=== PATIENT | female | born 1950 | race Caucasian/White ===

== ENCOUNTER 2017-03-18 15:30 | Emergency (ER) | payer MEDICARE, OTHER ==
[2017-03-18] MEDS ORDERED: HYDROcodone/APAP 5/325 TABLET ONE (16:22)
[2017-03-18] MEDS ORDERED: IBUPROFEN 200 MG TABLET ONE (16:22)
[2017-03-18] MEDS ORDERED: ONDANSETRON ODT 4 MG ONE (16:22)
== END 2017-03-18 17:34 ==
LOC: ED 15:30
DX: S20.212A Contusion of left front wall of thorax, initial encounter (principal); W01.0XXA Fall on same level from slipping, tripping and stumbling without subsequent striking against object, initial encounter; Y93.89 Activity, other specified; Y99.8 Other external cause status; Y92.009 Unspecified place in unspecified non-institutional (private) residence as the place of occurrence of the external cause
CPT/HCPCS: 99284

== ENCOUNTER 2017-04-29 13:27 | Day surgery (SDC) | payer MEDICARE ==
[~2017-04-29] VITALS: Ht 180.3 cm; Wt 70.0 kg
[2017-04-29 14:25] VITALS: BP 122/78
[2017-04-29] MEDS ORDERED: SODIUM CHLORIDE 0.9% 1,000 ML IV SCH (14:27)
[2017-04-29 17:35] LABS: CYTOLOGY BODY FLUID RECD INTO PATHOLOGY; CYTOLOGY BODY FLUID SOURCE CEREBROSPINAL FLUID
[2017-04-29 18:24] LABS: GLUCOSE, CSF 51 mg/dL (40-80)
== END 2017-04-29 20:40 ==
LOC: OUT 13:27
PROVIDERS: ATTEND Specialist
DX: H47.019 Ischemic optic neuropathy, unspecified eye (principal); Z88.8 Allergy status to other drugs, medicaments and biological substances
CPT/HCPCS: 36415; 62270; 82040; 82042; 82164; 82784; 82945; 83519; 83520; 83873; 84157; 84210; 86256; 86316; 86592; 86645; 86695; 86696; 86762; 86777; 86778; 87070; 87205; 87476; 87496; 87529; 87798; 88108; 89051; J7030; 84182; 86317

== ENCOUNTER 2017-06-07 11:50 | Emergency (ER) | payer MEDICARE ==
[~2017-06-07] VITALS: Ht 177.8 cm; Wt 70.5 kg
[2017-06-07 11:51] VITALS: BP 146/76
[2017-06-07] MEDS ORDERED: SERT100T PO (12:15)
[2017-06-07] MEDS ORDERED: GABA400C PO (12:15)
[2017-06-07] MEDS ORDERED: ACID1TAB PO (12:15)
[2017-06-07] MEDS ORDERED: LEVO100T5 PO (12:15)
[2017-06-07] MEDS ORDERED: OMEG1CAP34 PO (12:15)
[2017-06-07] MEDS ORDERED: MULT-717 PO (12:15)
[2017-06-07] MEDS ORDERED: GLUC500T11 PO (12:15)
[2017-06-07] MEDS ORDERED: BACL-19 PO (12:15)
[2017-06-07] MEDS ORDERED: ATOR10TA PO (12:15)
[2017-06-07] MEDS ORDERED: ASPI-496 PO (12:15)
[2017-06-07] MEDS ORDERED: LATA2.5D3 EACHEYE (12:15)
[2017-06-07] MEDS ORDERED: DIPH,PERTUSS(ACELL),TET VAC/PF 0.5 ML IM-VACC ONE ×2 (12:19→12:30)
[2017-06-07] MEDS ORDERED: LIDOCAINE 1%, 20ML ONE (12:19)
[2017-06-07] MEDS ORDERED: LIDOCAINE 1%, 20ML SQ ONE (12:30)
== END 2017-06-07 13:17 | disposition home or self-care (01) ==
LOC: ED 13:09
DX: S01.01XA Laceration without foreign body of scalp, initial encounter (principal); W19.XXXA Unspecified fall, initial encounter; Y93.89 Activity, other specified; Y92.009 Unspecified place in unspecified non-institutional (private) residence as the place of occurrence of the external cause; Y99.9 Unspecified external cause status
CPT/HCPCS: 12001; 90471; 90715; 99283; J3490

== ENCOUNTER 2017-06-14 10:48 | Emergency (ER) | payer MEDICARE ==
[~2017-06-14] VITALS: Ht 177.8 cm; Wt 71.4 kg
[~2017-06-14 10:48] MED LIST: ACID1TAB PO; ASPI-496 PO; ATOR10TA PO; BACL-19 PO; GABA400C PO; GLUC500T11 PO; LATA2.5D3 EACHEYE; LEVO100T5 PO; MULT-717 PO; OMEG1CAP34 PO; SERT100T PO
[2017-06-14 10:56] VITALS: BP 96/63
== END 2017-06-14 11:26 | disposition home or self-care (01) ==
LOC: ED 11:08
DX: S01.01XD Laceration without foreign body of scalp, subsequent encounter (principal); X58.XXXD Exposure to other specified factors, subsequent encounter; Y92.89 Other specified places as the place of occurrence of the external cause; Y99.8 Other external cause status
CPT/HCPCS: 99281

== ENCOUNTER → 2017-09-19 | Outpatient (CLI) | payer MEDICARE | END | disposition home or self-care (01) | LOC: CFH 13:14 | PROVIDERS: ATTEND Nurse Practitioner Family | DX: Z12.31 Encounter for screening mammogram for malignant neoplasm of breast (principal) | CPT/HCPCS: G0202 ==

== ENCOUNTER 2019-10-05 11:48 | Outpatient (CLI) | payer MEDICARE | END 2019-10-05 23:59 | disposition home or self-care (01) | LOC: CFH 11:48 | PROVIDERS: ATTEND Nurse Practitioner Family | DX: Z12.31 Encounter for screening mammogram for malignant neoplasm of breast (principal) | CPT/HCPCS: 77063; 77067 ==

== ENCOUNTER 2019-11-01 14:16 | Emergency (ER) | payer MEDICARE ==
[~2019-11-01] VITALS: Ht 177.8 cm; Wt 69.5 kg
--- NOTE | 2019-11-01 14:58 | NUR ---
THIS IS A 69 YO FEMALE COMING IN FOR RIGHT RIB PAIN DUE TO FALL 3 DAYS AGO, THEN FALL ON SAME SIDE TWO DAYS AGO, PAIN UNSUBSIDING AT THIS TIME. PATIENT HAS HX OF MS WITH HX OF MULTIPLE FALLS. PATIENT A&OX4, VSS, NAD. BP ANS SPO2 MONITORING IN PLACE. WILL CONTINUE TO MONITOR
[2019-11-01] MEDS ORDERED: IBUPROFEN 600 MG TABLET ONE (15:25)
--- NOTE | 2019-11-01 15:27 | NUR ---
PATIENT MEDICATED PER EMAR, TOELRATED WELL. WAITING FOR XRAY
[2019-11-01] MEDS ORDERED: IBUPROFEN 800 MG TABLET PO ONE (15:30)
[2019-11-01] MEDS ORDERED: IBUPROFEN 600 MG TABLET PO ONE (15:30)
--- NOTE | 2019-11-01 15:31 | NUR ---
PATIENT TO XRAY
--- NOTE | 2019-11-01 15:44 | NUR ---
PATIENT BACK FROM XRAY
[2019-11-01 15:58] VITALS: BP 122/56
== END 2019-11-01 16:49 | disposition home or self-care (01) ==
LOC: ED 15:48
DX: S22.41XA Multiple fractures of ribs, right side, initial encounter for closed fracture (principal); G35 Multiple sclerosis; E78.5 Hyperlipidemia, unspecified; W01.0XXA Fall on same level from slipping, tripping and stumbling without subsequent striking against object, initial encounter; Y93.89 Activity, other specified; Y92.098 Other place in other non-institutional residence as the place of occurrence of the external cause; Y99.8 Other external cause status
CPT/HCPCS: 99283

== ENCOUNTER 2020-03-04 16:15 | Emergency (ER) | payer MEDICARE ==
[~2020-03-04] VITALS: Ht 177.8 cm; Wt 70.0 kg
--- NOTE | 2020-03-04 16:40 | NUR ---
FIRST CONTACT WITH PT. PT ARRIVES WITH SO AND IN OWN WHEELCHAIR WHICH SHE USES FOR BASELINE RLE WEAKNESS AND HX OF MS. PT REPORTS L HIP PAIN SP MECHANICAL GLF TODAY. NO LIMB SHORTENING OR EXTERNAL ROTATION NOTED. +CMS. PT REPORTS DIARRHEA X SEVERAL DAYS AND N/V TODAY WITH INCREASING GENERALIZED WEAKNESS. PT DENIES CP/SOB/DIZZINESS ASSOCIATED WITH FALL. A&OX4, SPEECH CLEAR, FACE SYMMETRICAL. DENIES LOC, MIDLINE NECK OR BACK PAIN, OR INCONTINENCE. BP/SPO2/ECG MONITORING IN PLACE. NSR ON MONITOR.
[2020-03-04] MEDS ORDERED: SODIUM CHLORIDE FLUSH 10ML SYR IVF ONE (17:00)
[2020-03-04] MEDS ORDERED: SODIUM CHLORIDE 0.9% 1,000ML IVBOLUS ONE (17:00)
--- NOTE | 2020-03-04 17:21 | NUR ---
PT IN CT/RAD, DELAY IN IV PLACEMENT
[2020-03-04 17:51] VITALS: BP 120/68
--- NOTE | 2020-03-04 17:51 | NUR ---
IV ESTABLISHED. IVF HUNG. STRAIGHT CATH UA COLLCTED AND WALKED TO LAB
[2020-03-04 18:16] LABS: MICROSCOPIC NOT IND
[2020-03-04 18:36] LABS: ALANINE AMINOTRANSFERASE 19 U/L (12-78); ANION GAP 6 mmol/L (5-15); CALCIUM 8.6 mg/dL (8.5-10.1); CHLORIDE 110 mmol/L (98-107); CREATININE 0.75 mg/dL (0.55-1.02)
[2020-03-04 18:38] LABS: BASOPHILS # (AUTO) 0.03 x10^3/uL (0-0.1); BASOPHILS % (AUTO) 0 % (0-1); EOSINOPHILS # (AUTO) 0.05 x10^3/uL (0-0.4); EOSINOPHILS % (AUTO) 1 % (1-7); LYMPHOCYTES # (AUTO) 0.79 x10^3/uL (1-3.4); LYMPHOCYTES % (AUTO) 7 % (22-44); MD NO; MEAN CORPUSCULAR HGB CONC 32.4 g/dL (32.4-35.8); MEAN PLATELET VOLUME 10.1 fL (7.4-10.4); MONOCYTES # (AUTO) 0.69 x10^3/uL (0.2-0.8); MONOCYTES % (AUTO) 6 % (2-9); NEUTROPHILS # (AUTO) 10.04 x10^3/uL (1.8-6.8); NEUTROPHILS % (AUTO) 87 % (42-75); PLATELET COUNT 220 x10^3/uL (130-400); RED BLOOD COUNT 4.09 x10^6/uL (3.82-5.3); RED CELL DISTRIBUTION WIDTH 13.5 % (9.6-15.2)
[2020-03-04 18:39] LABS: ALKALINE PHOSPHATASE 89 U/L (45-117); BILIRUBIN,TOTAL 0.5 mg/dL (0.2-1.0); TOTAL PROTEIN 6.5 g/dL (6.4-8.2)
[2020-03-04] MEDS ORDERED: HYDROcodone/APAP 5/325 TABLET ONE (19:16)
[2020-03-04] MEDS ORDERED: HYDROcodone/APAP 5/325 TABLET PO ONE (19:30)
== END 2020-03-04 19:25 | disposition home or self-care (01) ==
LOC: ED 18:15
DX: S33.5XXA Sprain of ligaments of lumbar spine, initial encounter (principal); S09.90XA Unspecified injury of head, initial encounter; R19.7 Diarrhea, unspecified; W01.10XA Fall on same level from slipping, tripping and stumbling with subsequent striking against unspecified object, initial encounter; Y93.89 Activity, other specified; Y92.009 Unspecified place in unspecified non-institutional (private) residence as the place of occurrence of the external cause; Y99.8 Other external cause status
CPT/HCPCS: 36415; 70450; 72190; 80053; 81003; 85025; 96360; 96361; 99285; J7030

== ENCOUNTER → 2020-04-06 | Outpatient (CLI) | payer MEDICARE | END | disposition home or self-care (01) | LOC: RAD 11:03 | PROVIDERS: ATTEND Physician Assistant Surgical | DX: M51.27 Other intervertebral disc displacement, lumbosacral region (principal); M51.37 Other intervertebral disc degeneration, lumbosacral region; M48.061 Spinal stenosis, lumbar region without neurogenic claudication | CPT/HCPCS: 72148 ==

== ENCOUNTER → 2020-08-30 | Outpatient (CLI) | payer MEDICARE ==
[~2020-08-30] MED LIST changes: -LATA2.5D3 EACHEYE; +LATA2.5D4 EACHEYE
== END | disposition home or self-care (01) ==
LOC: CFH 10:43
PROVIDERS: ATTEND Nurse Practitioner Family
DX: M85.88 Other specified disorders of bone density and structure, other site (principal); Z78.0 Asymptomatic menopausal state
CPT/HCPCS: 77080

== ENCOUNTER 2020-10-13 14:33 | Outpatient (CLI) | payer MEDICARE | END 2020-10-13 23:59 | disposition home or self-care (01) | LOC: CFH 14:33 | PROVIDERS: ATTEND Nurse Practitioner Family | DX: Z12.31 Encounter for screening mammogram for malignant neoplasm of breast (principal) | CPT/HCPCS: 77063; 77067 ==